=== PATIENT | female | born 1950 | race African-American/Black ===

== ENCOUNTER 2016-10-07 07:45 | Day surgery (SDC) | payer OTHER ==
[2016-10-03 10:23] VITALS: BMI 33.8
[2016-10-07] MEDS ORDERED: BUPIVACAINE HCL/PF 0.5% (5MG/ML) 10 ML VIAL ONE (09:31)
[2016-10-07] MEDS ORDERED: methylPREDNISolone ACET (DEPO) 40 MG/1 ML VIAL ONE (09:31)
[2016-10-07] MEDS ORDERED: ONDANSETRON 4 MG/2 ML VIAL IVPUSH PRN (10:33)
[2016-10-07] MEDS ORDERED: PROMETHAZINE HCL 25 MG/1 ML VIAL IVPUSH PRN (10:33)
[2016-10-07] MEDS ORDERED: oxyCODONE HCL 5 MG TABLET PO PRN (10:33)
--- NOTE | 2016-10-07 11:28 | OP ---
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 PROCEDURE PERFORMED: Aspiration arthrogram to the right hip. SURGEON: Jv Ortez MD [employer] TUBE BENDER: None. ANESTHESIA: Dr. Nicholas, monitored anesthesia care. DESCRIPTION OF PROCEDURE: The patient was brought to the operating room and gently transferred from the stretcher to the OR table with all bony prominences well padded. The right hip was prepped and draped in a sterile fashion. The patient was given intravenous antibiotics and copious irrigation throughout the procedure to minimize risk of infection. Complete risks and benefits discussion. Appropriate time- out. Time-out discussion. Following sterile preparation and draping of the right hip , a fluoroscopically-guided 22-gauge needle was introduced into the right hip joint. Contrast was injected to identify location. Following this, the solution of Marcaine 4 mL and Depo-Medrol 1 mL 40 mg/mL was instilled into the right hip joint. The patient was then gently awoken from anesthesia without incident. The needle had been withdrawn. Sterile dressing was applied. The patient was then transferred from the operating room to the recovery room in satisfactory condition. There were no intraoperative complications. Mark [id number] MTDD
[2016-10-07 13:45] VITALS: BP 152/80; PULSE 71; TEMP 97.5
== END 2016-10-07 13:45 | disposition home or self-care (01) ==
LOC: FASU 07:45
PROVIDERS: ATTEND Orthopaedic Surgery
PROC: BQ10YZZ Fluoroscopy of Right Hip using Other Contrast (ICD-10-PCS; 2016-10-07)
PROC: 3E0U33Z Introduction of Anti-inflammatory into Joints, Percutaneous Approach (ICD-10-PCS; principal; 2016-10-07 09:00)
DX: S73.191D Other sprain of right hip, subsequent encounter (principal); X58.XXXD Exposure to other specified factors, subsequent encounter
CPT/HCPCS: 73502-TC-RT; 94760